=== PATIENT | female | born 1990 | race Caucasian/White ===

== ENCOUNTER 2019-07-22 20:05 | Emergency (ER) | payer SELFPAY ==
[~2019-07-22] VITALS: Ht 154.9 cm; Wt 72.7 kg
--- NOTE | 2019-07-22 20:40 | PHYS DOC ---
General Adult EDM: Chief Complaint: ABDOMINAL PAIN HPI: HPI: Patient is a 28 year old female who presents with mid abdominal pain that started earlier this today. Patient states that pain has been waxing and waning and she describes a sharp in nature. She states that at its worse is about an 8 out of 10 and currently is about a 4 out of 10. She does indicate that she's had some nausea but no vomiting. She denies any diarrhea. Her last bowel movement was about 2 hours ago. Patient denies any chest pain or shortness of breath and has had no fever. She denies any urinary discomfort. She states that nothing improves the pain.[] Review of Systems: Review of Systems: Constitutional: Denies fever or chills. [] Respiratory: Denies cough or shortness of breath. [] Cardiovascular: Denies chest pain or edema. [] GI: Complains of abdominal pain without vomiting or diarrhea. [] : Denies dysuria. [] Neurologic: Denies headache, focal weakness or sensory changes. [] A full 10 point review of systems has been reviewed and is otherwise negative except as noted in history of present illness. Heart Score: Risk Factors: Risk Factors: DM, Current or recent (<one month) smoker, HTN, HLP, family history of CAD, obesity. Risk Scores: Score 0 - 3: 2.5% MACE over next 6 weeks - Discharge Home Score 4 - 6: 20.3% MACE over next 6 weeks - Admit for Clinical Observation Score 7 - 10: 72.7% MACE over next 6 weeks - Early Invasive Strategies Current Medications: Current Medications Medications (Trade) Dose Ordered Sig/[facility] Start Time Stop Time Status Last Admin Dose Admin Ketorolac Tromethamine (Toradol 30mg Vial) 30 mg 1X ONCE 07/22/19 20:45 07/22/19 20:46 UNV Ondansetron HCl (Zofran) 4 mg 1X ONCE 07/22/19 20:45 07/22/19 20:46 UNV Sodium Chloride 1,000 ml @ 1,000 mls/hr Q1H 07/22/19 20:33 07/22/19 21:32 UNV Physical Exam: PE: Constitutional: Well developed, well nourished, no acute distress, non-toxic appearance. [] HENT: Normocephalic, atraumatic, bilateral external ears normal, oropharynx moist, no oral exudates, nose normal. [] Eyes: PERRLA, EOMI, conjunctiva normal, no discharge. [] Neck: Normal range of motion, no tenderness, supple, no stridor. [] Cardiovascular: Regular rate and rhythm[] Lungs & Thorax: Bilateral breath sounds clear to auscultation [] Abdomen: Bowel sounds normal, soft, with moderate periumbilical tenderness with mild diffuse tenderness. [] Skin: Warm, dry, no erythema, no rash. [] Extremities: No tenderness, no cyanosis, no clubbing, ROM intact, no edema. [] Neurologic: Alert and oriented X 3, no focal deficits noted. [] Current Patient Data: Labs: Laboratory Tests Test 07/22/19 20:29 POC Urine HCG, Qualitative Hcg negative (Negative) EKG: EKG: [] Radiology/Procedures: Radiology/Procedures: [] Impression: PROCEDURE: CT ABD PELV W/ IV CONTRST ONLY Exam: CT of abdomen and pelvis with contrast INDICATION: Lower abdominal pain TECHNIQUE: Sequential axial images through the abdomen and pelvis obtained following the administration of 75 mL of Omni 300 IV contrast. Sagittal and coronal reformatted images were reconstructed from the axial data and reviewed. Comparisons: None FINDINGS: Heart size is normal. No pericardial effusion. There is a 5 mm nodule at the left lower lobe. No pleural effusion. Liver, spleen, pancreas, gallbladder and adrenals are unremarkable. Kidneys demonstrate symmetric enhancement. No perinephric inflammation or hydronephrosis. No renal or ureteral calculi are identified. Bladder is distended and appears thin-walled. Uterus is nonenlarged. No abnormal adnexal mass. Mild stranding noted in the left lower quadrant adjacent to several loops of small bowel. Large and small bowel are unremarkable. Appendix is not identified. No free intra-abdominal air or fluid. No obstruction. Abdominal aorta has a normal course and caliber. Abdominal vasculature is patent. No enlarged intra-abdominal lymph nodes are identified. No suspicious osseous lesions or acute fractures. IMPRESSION: Mild fat stranding noted in the left lower quadrant adjacent to loops of small bowel which may relate to focal enteritis. This may be infectious or inflammatory in etiology. Exposure: One or more of the following in the visualized dose reduction techniques were utilized for this examination: 1. Automated exposure control 2. Adjustment of the MA and/or KV according to patient size 3. Use of iterative of reconstructive technique Electronically signed by: Michael Petersen MD (07/22/2019 10:14 PM) [id number] DICTATED and SIGNED BY: MICHAEL PETERSEN MD DATE: 07/22/192213 Course & Med Decision Making: Course & Med Decision Making Pertinent Labs and Imaging studies reviewed. (See chart for details) [] Dragon Disclaimer: Dragon Disclaimer: This electronic medical record was generated, in whole or in part, using a voice recognition dictation system. Departure Departure Impression: Primary Impression: Enteritis Disposition: HOME, SELF-CARE Condition: STABLE Referrals: NO PCP (PCP) Patient Instructions: Colitis Scripts Ondansetron (ONDANSETRON ODT) 4 Mg Tab.rapdis 1 TAB PO PRN Q6-8HRS PRN for NAUSEA, #15 TAB Prov: ANDREE MARTINS Jr. DO 07/22/19 Dicyclomine Hcl (DICYCLOMINE HCL) 20 Mg Tablet 1 TAB PO TID PRN for abdominal cramping/pain, #30 TAB Prov: ANDREE MARTINS Jr. DO 07/22/19 Metronidazole (FLAGYL) 500 Mg Tablet 1 TAB PO TID, #30 TAB Prov: ANDREE MARTINS Jr. DO 07/22/19 Tramadol Hcl (TRAMADOL HCL) 50 Mg Tablet 50 MG PO Q6HRS PRN for PAIN, #12 TAB Prov: ANDREE MARTINS Jr. DO 07/22/19 ANDREE MARTINS Jr. DO July 22, 2019 20:40
[2019-07-22 20:43] LABS: BILIRUBIN,URINE NEGATIVE (NEG); CLARITY,URINE CLEAR; COLOR,URINE YELLOW; NITRITE,URINE NEGATIVE (NEG); PROTEIN,URINE NEGATIVE (NEG-TRACE); UROBILINOGEN,URINE 0.2 mg/dL (0.2 mg/dL)
[2019-07-22 20:49] LABS: BACTERIA,URINE FEW /HPF (0-FEW); RBC,URINE 0 /HPF (0-2); SQUAMOUS EPITHELIAL CELL,UR MANY /LPF
[2019-07-22 20:53] LABS: BASO # 0.1 x10^3/uL (0.0-0.2); BASO % 1 % (0-3); EOS # 0.2 x10^3/uL (0.0-0.7); EOS % 1 % (0-3); HEMATOCRIT 36.7 % (36.0-47.0); HEMOGLOBIN 12.4 g/dL (12.0-15.5); LYMPH % 15 % (24-48); MEAN CORPUSCULAR HEMOGLOBIN 30 pg (25-35); MEAN CORPUSCULAR HGB CONC 34 g/dL (31-37); MEAN CORPUSCULAR VOLUME 90 fL (79-100); MONO # 0.5 x10^3/uL (0.0-1.1); MONO % 4 % (0-9); NEUT # 10.8 x10^3/uL (1.8-7.7); NEUT % 80 % (31-73); PLATELET COUNT 249 x10^3/uL (140-400); RED CELL DISTRIBUTION WIDTH 13.5 % (11.5-14.5); WHITE BLOOD COUNT 13.5 x10^3/uL (4.0-11.0)
[2019-07-22] MEDS ORDERED: ONDANSETRON PF 4 MG/2 ML VIAL. IVP ONE (21:00)
[2019-07-22] MEDS ORDERED: IV NORMAL SALINE 1000ML BAG 1,000 ML IV SCH (21:00)
[2019-07-22] MEDS ORDERED: KETOROLAC 30 MG/ML VIAL. IVP ONE (21:00)
[2019-07-22 21:02] LABS: CALCIUM 8.9 mg/dL (8.5-10.1); CREATININE 0.7 mg/dL (0.6-1.0); GFR 98.9; POTASSIUM 3.8 mmol/L (3.5-5.1)
[2019-07-22 21:09] LABS: ALBUMIN 3.8 g/dL (3.4-5.0); ALBUMIN/GLOBULIN RATIO 1.3 (1.0-1.7); TOTAL BILIRUBIN 0.2 mg/dL (0.2-1.0); TOTAL PROTEIN 6.7 g/dL (6.4-8.2)
[2019-07-22] MEDS ORDERED: CONTRAST GIVEN. MC PRN (21:30)
[2019-07-22] MEDS ORDERED: IOHEXOL 300 MG/ML 100ML VIAL. IV ONE (21:30)
--- NOTE | 2019-07-22 22:17 | RAD ---
Exam: CT of abdomen and pelvis with contrast INDICATION: Lower abdominal pain TECHNIQUE: Sequential axial images through the abdomen and pelvis obtained following the administration of 75 mL of Omni 300 IV contrast. Sagittal and coronal reformatted images were reconstructed from the axial data and reviewed. Comparisons: None FINDINGS: Heart size is normal. No pericardial effusion. There is a 5 mm nodule at the left lower lobe. No pleural effusion. Liver, spleen, pancreas, gallbladder and adrenals are unremarkable. Kidneys demonstrate symmetric enhancement. No perinephric inflammation or hydronephrosis. No renal or ureteral calculi are identified. Bladder is distended and appears thin-walled. Uterus is nonenlarged. No abnormal adnexal mass. Mild stranding noted in the left lower quadrant adjacent to several loops of small bowel. Large and small bowel are unremarkable. Appendix is not identified. No free intra-abdominal air or fluid. No obstruction. Abdominal aorta has a normal course and caliber. Abdominal vasculature is patent. No enlarged intra-abdominal lymph nodes are identified. No suspicious osseous lesions or acute fractures. IMPRESSION: Mild fat stranding noted in the left lower quadrant adjacent to loops of small bowel which may relate to focal enteritis. This may be infectious or inflammatory in etiology. Exposure: One or more of the following in the visualized dose reduction techniques were utilized for this examination: 1. Automated exposure control 2. Adjustment of the MA and/or KV according to patient size 3. Use of iterative of reconstructive technique Electronically signed by: Judy Eduardo MD (07/22/2019 10:14 PM) [id number]
[2019-07-22] MEDS ORDERED: DICY20TA3 PO (22:33)
[2019-07-22] MEDS ORDERED: METR500T PO (22:33)
[2019-07-22] MEDS ORDERED: TRAM50TA PO (22:33)
[2019-07-22] MEDS ORDERED: ONDA4TAB12 PO (22:33)
[2019-07-22 22:42] VITALS: BP 122/63
== END 2019-07-22 22:45 | disposition home or self-care (01) ==
LOC: ER 20:05
DX: K52.9 Noninfective gastroenteritis and colitis, unspecified (principal)
CPT/HCPCS: 36415; 74177; 80053; 81001; 81025; 83690; 85025; 87086; 96361; 96374; 96375; 99285; J1885; J2405; J7030; Q9967

== ENCOUNTER 2019-10-17 13:01 | Emergency (ER) | payer SELFPAY ==
[~2019-10-17] VITALS: Ht 154.9 cm; Wt 76.3 kg
[~2019-10-17 13:01] MED LIST: DICY20TA3 PO; METR500T PO; ONDA4TAB12 PO; TRAM50TA PO
--- NOTE | 2019-10-17 14:19 | PHYS DOC ---
Past Medical History Past Medical History: Asthma, UTI Past Surgical History: Appendectomy, Tonsillectomy Smoking Status: Current Every Day Smoker Alcohol Use: None General Adult EDM: Chief Complaint: DIARRHEA HPI: HPI: Patient is a 29 year old female who presents with complaints of being sent home today from work for having to diarrhea spells. Patient states that she awoke this morning at approximately 4 AM and had a diarrhea spell, then at work had 2-3 more and was sent home because her employer was worried she may have the COVID virus. The patient does not have any COVID virus concerns, also states she was not exposed to the COVID virus as far as she aware of. Currently patient has no complaints patient denies any fever chills, any visual changes, any nasal congestion, no cough or shortness of breath. She denies any chest pa in or swelling in her extremities. Patient currently denies any nausea vomiting diarrhea constipation or blood in her stools or abdominal pain or abdominal discomfort. Patient denies any problems urinating, denies any vaginal discharge, denies any STI concerns. Patient denies any back pain, or pain in her joints, rashes on her skin, headaches, focal weaknesses or sensory changes. Patient denies any swelling of her glands. Denies any recent life changes, depressions, anxieties, homicidal suicidal ideations. Patient states that when she awoke she had some minor lower abdominal discomfort that she says felt like gas pains, had a few bouts of diarrhea, took some Pepto-Bismol, has not had any symptoms for the past 2 to 3 hours, feels much better. Patient states she needs a excuse to go back to work, and would like to have a COVID test to prove to them she does not have the code virus. Review of Systems: Review of Systems: Constitutional: Denies fever or chills. Eyes: Denies change in visual acuity. HENT: Denies nasal congestion or sore throat. Respiratory: Denies cough or shortness of breath. Cardiovascular: Denies chest pain or edema. GI: Denies abdominal pain, nausea, vomiting, bloody stools or diarrhea. However she states at approximately 4 AM she had 2-3 bouts of diarrhea that has been resolved since taking Pepto-Bismol. : Denies dysuria. Musculoskeletal: Denies back pain or joint pain. Integument: Denies rash. Neurologic: Denies headache, focal weakness or sensory changes. Lymphatic: Denies swollen glands. Psychiatric: Denies depression or anxiety. Heart Score: Risk Factors: Risk Factors: DM, Current or recent (<one month) smoker, HTN, HLP, family history of CAD, obesity. Risk Scores: Score 0 - 3: 2.5% MACE over next 6 weeks - Discharge Home Score 4 - 6: 20.3% MACE over next 6 weeks - Admit for Clinical Observation Score 7 - 10: 72.7% MACE over next 6 weeks - Early Invasive Strategies Family History: Family History: States both mother and father are healthy Current Medications: Patient denies taking home meds currently. Allergies: Allergies: Allergies Coded Allergies Type Severity Reaction Last Updated Verified butorphanol Allergy Severe RASH 10/17/19 Yes tramadol Allergy Severe RASH 10/17/19 Yes codeine Allergy Intermediate unknown 10/17/19 Yes fentanyl Allergy Intermediate unknown 10/17/19 Yes hydrocodone Allergy Intermediate unknown 10/17/19 Yes Physical Exam: PE: Constitutional: Well developed, well nourished, no acute distress, non-toxic appearance. HENT: Normocephalic, atraumatic, bilateral external ears normal, oropharynx moist, no oral exudates, nose normal. Eyes: PERRLA, EOMI, conjunctiva normal, no discharge. 4 mm. Neck: Normal range of motion, no tenderness, supple, no stridor. Cardiovascular:Heart rate regular rhythm, no murmur, heart sounds S1-S2, no abnormalities noted per auscultation. Lungs & Thorax: Bilateral breath sounds clear to auscultation all lung bustos. Abdomen: Bowel sounds normal all 4 quadrants auscultation, soft, no tenderness, no masses, no pulsatile masses. Skin: Warm, dry, no erythema, no rash. Back: No tenderness, no CVA tenderness. Extremities: No tenderness, no cyanosis, no clubbing, ROM intact, no edema. Neurologic: Alert and oriented X 3, normal motor function, normal sensory function, no focal deficits noted. Psychologic: Affect normal, judgement normal, mood normal. No homicidal or suicidal ideation. Current Patient Data: Vital Signs: Vital Signs Date Time Temp Pulse Resp B/P (MAP) Pulse Ox O2 Delivery O2 Flow Rate FiO2 10/17/19 13:17 98.5 67 16 121/61 (81) 98 Room Air 98.5 EKG: EKG: [] Radiology/Procedures: Radiology/Procedures: [] Course & Med Decision Making: Course & Med Decision Making Pertinent Labs and Imaging studies reviewed. (See chart for details) 29-year-old female patient was sent home from work because her employer feared she may have the COVID-19 virus related to the patient having 2-3 diarrhea spells since 4 AM today. Patient states that she took Pepto-Bismol and all symptoms have resolved, states she had some lower abdominal cramping as if she had gas pains then had the diarrhea spells then took Pepto-Bismol then symptoms resolved. Patient currently has no complaints, physical examination was non- concerning for infectious process. Offered patient COVID-19 testing which she agreed to stating that she wants to prove to her employer she does not have COVID-19. A COVID-19 swab was obtained in the emergency department, patient was discharged home with instructions to return to the emergency department for returning symptoms or further concerns. Patient had no further questions or concerns, gave verbal understanding of discharge instructions. [employer] Disclaimer: [employer] Disclaimer: This electronic medical record was generated, in whole or in part, using a voice recognition dictation system. Departure Departure Impression: Primary Impression: Diarrhea Qualified Codes: R19.7 - Diarrhea, unspecified Additional Impression: Person under investigation for COVID-19 Disposition: 01 HOME, SELF-CARE Condition: GOOD Referrals: NO PCP (PCP) Additional Instructions: Please return to the emergency department for any further concerns, you will be contacted if your COVID-19 test becomes positive. See your doctor soon. You have been tested for or diagnosed with COVID-19. It is an infection caused by a new type of coronavirus. COVID-19 will cause cold-like or mild flu symptoms in most. It can cause more severe symptoms like problems breathing in some. There is no treatment for COVID-19. The body will clear the infection over time. Self-care will help to ease discomfort. Steps to Take: Self-Care Rest as needed. Healthy habits may help you feel better. Steps include: Choose healthy foods including fruits and vegetables. Drink water throughout the day. Get plenty of sleep each night. If you smoke, try to quit. It may ease breathing. Avoid alcohol. Keep Others Healthy The virus can spread to others. Droplets are released every time you sneeze or cough. The droplets can get into the mouth, nose, or eyes of people near you and lead to infection. To lower the chances of spreading COVID-19 to others: Stay at home until your doctor has said it is safe to leave. If you tested positive this will mean staying isolated until both of the following are true: At least 7 days have passed since the start of illness. You are free of fever for at least 72 hours without the use of medicine. During this time: - Avoid public areas, events, or transportation. Do not return to work or school until your doctor has said it is safe to do so. - Call ahead if you need to go to a medical center. Let them know you may have COVID-19. It will help them guide you where to go. They may also ask you to wear a facemask when you come to the office. - If you call for emergency medical services, let them know you may have COVID- 19. While at home: - Try to avoid close contact with others. Stay about 6 feet away. - If possible, spend most of your time in a separate room from others. - Use a face mask if you will be in close contact with others such as sharing a room or vehicle. - Have someone wipe down common surfaces in the home. Use household aircraft assembler every day on areas like doorknobs, counters, or sinks. - Cough or sneeze into a tissue. Throw the tissue away right after use. If a tissue is not available, cough or sneeze into your elbow. - Wash your hands often. Wash them after sneezing or coughing. Use soap and water and wash for at least 20 seconds. Alcohol based hand poultry cleaner can be used if soap and water is not available. - Do not prepare food for others. Avoid sharing personal items like forks, spoons, or toothbrushes. - Avoid close contact with pets while you are sick. There is no evidence of the virus passing to pets. This is a safety step until more is known about this virus. Isolation can be frustrating. Social interaction can help. Keep in touch with friends and family through phone and tech options. You can still interact with others in your home, just keep a safe distance of about 6 feet. Follow-up: Your doctors office will check in with you to see if there are any changes in your health. You may be asked to keep track of symptoms to share with them. They will also let you know when you are clear to be in public again. Problems to Look Out For: Contact your doctor if your recovery is not going as you expect. Get emergency care if you have problems such as: - Trouble breathing - Nonstop chest pain or pressure - Changes in awareness, confusion, or problems waking - Lips or face have bluish color - Worsening of symptoms If you think you have an emergency, call for emergency medical services right away. As taken from [facility] Justicifation of Admission Dx: Justifications for Admission: Justification of Admission Dx: N/A MICHAEL BOYCE APRN Oct 17, 2019 14:19
[2019-10-17 14:33] VITALS: BP 124/70
--- NOTE | 2019-10-18 15:09 | NUR ---
IP: Pt informed of her negative COVID results. Pt verbalized understanding. Pt wanting a copy of the results for work, I referred her to Medical Records.
== END 2019-10-17 14:34 | disposition home or self-care (01) ==
LOC: ER 13:01
DX: R19.7 Diarrhea, unspecified (principal); Z20.818 Contact with and (suspected) exposure to other bacterial communicable diseases; J45.909 Unspecified asthma, uncomplicated; F17.200 Nicotine dependence, unspecified, uncomplicated; Z90.89 Acquired absence of other organs; Z88.5 Allergy status to narcotic agent; Z88.8 Allergy status to other drugs, medicaments and biological substances
CPT/HCPCS: 99283; U0003; 99284

== ENCOUNTER 2019-10-19 17:23 | Emergency (ER) | payer SELFPAY ==
[~2019-10-19] VITALS: Ht 154.9 cm; Wt 77.2 kg
[2019-10-19] MEDS ORDERED: ONDANSETRON ODT 4 MG TAB.RAPDIS. PO ONE (18:15)
[2019-10-19 19:30] VITALS: BP 155/88
--- NOTE | 2019-10-19 19:33 | PHYS DOC ---
Past Medical History Past Medical History: Asthma, UTI Past Surgical History: Appendectomy, Tonsillectomy, Other Additional Past Surgical Histo: wisdom teeth Smoking Status: Current Every Day Smoker Alcohol Use: None General Adult EDM: Chief Complaint: ABDOMINAL PAIN HPI: HPI: Patient is a 29 year old female who presents presents to the emergency department reporting that she had a sudden onset of pain in her lower abdomen at approximately 1500 today, has a history of colitis and diverticulitis, feared that that is what was happening again, came to the emergency department and at approximately 1730 her symptoms completely resolved. Patient states that she has absolutely no problems at this time and wishes to go home other than having a slight nausea feeling. Patient states that her last menstrual period was on 09/18 and she is actually due for her period to start today. Patient reports that she had an appendectomy in 2016, her wisdom teeth removed in 2010, and a tonsillectomy when she was 4 years old. Patient denies any exposure to the COVID-19 virus, has no concerns for having the COVID-19 virus, and does not wish to be tested today. Patient currently denies any fever or chills, any nasal congestion or cough or shortness of breath or chest pain. She denies abdominal pain, vomiting, diarrhea, or constipation. Patient states she had a normal BM yesterday. Patient denies any back pain or pain in her joints, skin rashes, headaches, swollen glands, depressions or anxieties, any homicidal suicidal ideations. Review of Systems: Review of Systems: Constitutional: Denies fever or chills. Denies exposure to the COVID-19 virus. Eyes: Denies change in visual acuity. HENT: Denies nasal congestion or sore throat. Respiratory: Denies cough or shortness of breath. Cardiovascular: Denies chest pain or edema. GI: Denies abdominal pain, vomiting, bloody stools or diarrhea. However had some abdominal pain that prompted her to come to the emergency department has since resolved and the patient no longer wants to be seen. Feels slightly nauseated : Denies dysuria. Musculoskeletal: Denies back pain or joint pain. Integument: Denies rash. Neurologic: Denies headache, focal weakness or sensory changes. Endocrine: Denies polyuria or polydipsia. Lymphatic: Denies swollen glands. Psychiatric: Denies depression or anxiety. Denies homicidal or suicidal ideations. Heart Score: Risk Factors: Risk Factors: DM, Current or recent (<one month) smoker, HTN, HLP, family hist ory of CAD, obesity. Risk Scores: Score 0 - 3: 2.5% MACE over next 6 weeks - Discharge Home Score 4 - 6: 20.3% MACE over next 6 weeks - Admit for Clinical Observation Score 7 - 10: 72.7% MACE over next 6 weeks - Early Invasive Strategies Current Medications: Current Medications Medications (Trade) Dose Ordered Sig/[facility] Start Time Stop Time Status Last Admin Dose Admin Ondansetron HCl (Zofran Odt) 4 mg 1X ONCE 10/19/19 18:15 10/19/19 18:16 DC 10/19/19 18:36 4 MG Allergies: Allergies: Allergies Coded Allergies Type Severity Reaction Last Updated Verified butorphanol Allergy Severe RASH 10/17/19 Yes tramadol Allergy Severe RASH 10/17/19 Yes codeine Allergy Intermediate unknown 10/17/19 Yes fentanyl Allergy Intermediate unknown 10/17/19 Yes hydrocodone Allergy Intermediate unknown 10/17/19 Yes Physical Exam: PE: Constitutional: Well developed, well nourished, no acute distress, non-toxic appearance. HENT: Normocephalic, atraumatic, bilateral external ears normal, oropharynx moist, no oral exudates, nose normal. Eyes: PERRLA, EOMI, conjunctiva normal, no discharge. Neck: Normal range of motion, no tenderness, supple, no stridor. Cardiovascular:Heart rate regular rhythm, no murmur Lungs & Thorax: Bilateral breath sounds clear to auscultation Abdomen: Bowel sounds normal, soft, no tenderness, no masses, no pulsatile masses. Skin: Warm, dry, no erythema, no rash. Back: No tenderness, no CVA tenderness. Extremities: No tenderness, no cyanosis, no clubbing, ROM intact, no edema. Neurologic: Alert and oriented X 3, normal motor function, normal sensory function, no focal deficits noted. Psychologic: Affect normal, judgement normal, mood normal. Current Patient Data: Labs: Laboratory Tests Test 10/19/19 18:09 POC Urine HCG, Qualitative Hcg negative (Negative) Vital Signs: Vital Signs Date Time Temp Pulse Resp B/P (MAP) Pulse Ox O2 Delivery O2 Flow Rate FiO2 10/19/19 18:45 78 16 110/58 (75) 100 Room Air 10/19/19 17:51 99.2 99.2 EKG: EKG: [] Radiology/Procedures: Radiology/Procedures: [] Course & Med Decision Making: Course & Med Decision Making Pertinent Labs and Imaging studies reviewed. (See chart for details) 29-year-old female patient presented to the emergency department reporting a sudden onset of lower abdominal pain at approximately 1500, she came to the emergency department in fear that she had a colitis flareup or a diverticulitis flareup. However at approximately 1745 her pain suddenly resolved. Patient states that she had a little nausea which she was treated with sublingual Zofran that completely resolved her nausea. Offered to send urine to lab to look for UTI, perform a CAT scan and lab work to look for colitis, diverticulitis, or other infectious process. Patient refused all further care and recommendations stating that she does not want the extra radiation and feels that this was just gas pains and wishes to go home now. Patient is alert and oriented x3, and in my opinion able to make her own informed decisions. Discussed with patient discharge instructions, return to ER precautions, patient discharged home, patient had no further questions or concerns. [employer] Disclaimer: [employer] Disclaimer: This electronic medical record was generated, in whole or in part, using a voice recognition dictation system. Departure Departure Impression: Primary Impression: Nausea Disposition: 01 HOME, SELF-CARE Condition: GOOD Referrals: NO PCP (PCP) Patient Instructions: Nausea, Adult Additional Instructions: Please return to the emergency department for worsening symptoms or other concerns. Follow-up with your doctor as needed. Justicifation of Admission Dx: Justifications for Admission: Justification of Admission Dx: N/A MICHAEL BOYCE APRN Oct 19, 2019 19:33
== END 2019-10-19 20:03 | disposition home or self-care (01) ==
LOC: ER 17:23
DX: R11.0 Nausea (principal); R10.30 Lower abdominal pain, unspecified; J45.909 Unspecified asthma, uncomplicated; F17.200 Nicotine dependence, unspecified, uncomplicated; Z88.5 Allergy status to narcotic agent; Z88.6 Allergy status to analgesic agent; Z88.8 Allergy status to other drugs, medicaments and biological substances; Z90.89 Acquired absence of other organs; Z98.890 Other specified postprocedural states
CPT/HCPCS: 81025; 99283